=== PATIENT | female | born 1930 | race Caucasian/White ===

== ENCOUNTER → 2017-01-15 | Outpatient (CLI) | payer MEDICARE ==
[~2017-01-15] MED LIST: VENTAER INH; Z.0.NO CURRENT MEDS
[2017-01-15 16:01] LABS: AUTOMATED NEUTROPHIL # 5.4 TH/MM3 (1.8-7.7); BASOPHIL # 0.1 TH/MM3 (0-0.2); BASOPHIL % 0.9 % (0.0-2.0); EOSINOPHIL # 0.1 TH/MM3 (0-0.4); EOSINOPHIL % 1.5 % (0.0-4.0); HEMATOCRIT 38.9 % (35.0-46.0); HEMO FLAGS DIFF FINAL; LYMPH % 23.9 % (9.0-44.0); LYMPHOCYTE # 1.9 TH/MM3 (1.0-4.8); MEAN CELL VOLUME 90.8 FL (80.0-100.0); MEAN CORPUSCULAR HEMOGLOBIN 31.2 PG (27.0-34.0); MEAN CORPUSCULAR HGB CONC 34.3 % (32.0-36.0); MONO % 6.3 % (0.0-8.0); NEUT % 67.4 % (16.0-70.0); PLATELET COUNT 209 TH/MM3 (150-450); RED BLOOD COUNT 4.28 MIL/MM3 (4.00-5.30); RED CELL DISTRIBUTION WIDTH 13.9 % (11.6-17.2); WHITE BLOOD COUNT 7.9 TH/MM3 (4.0-11.0)
[2017-01-15 16:28] LABS: ANION GAP 10 MEQ/L (5-15); AST (GOT) 14 U/L (15-37); BICARBONATE 25.2 MEQ/L (21.0-32.0); BLOOD UREA NITROGEN 14 MG/DL (7-18); CHLORIDE 105 MEQ/L (98-107); GLOMERULAR FILTRATION RATE 76 ML/MIN (>89); GLUCOSE,FASTING 100 MG/DL (74-99); POTASSIUM 3.8 MEQ/L (3.5-5.1); SODIUM (NA) 140 MEQ/L (136-145)
[2017-01-15 16:57] LABS: ALKALINE PHOSPHATASE 80 U/L (45-117); ALT (GPT) 18 U/L (10-53); TOTAL BILIRUBIN ADULT 0.3 MG/DL (0.2-1.0)
== END ==
LOC: CLAB 15:34
PROVIDERS: ATTEND Family Medicine
DX: R53.81 Other malaise (principal)
CPT/HCPCS: 36415; 80053; 82607; 85025

== ENCOUNTER → 2017-10-20 | Outpatient (CLI) | payer MEDICARE ==
[2017-10-20 09:50] LABS: AUTOMATED NEUTROPHIL # 3.4 TH/MM3 (1.8-7.7); BASOPHIL # 0.1 TH/MM3 (0-0.2); BASOPHIL % 0.9 % (0.0-2.0); EOSINOPHIL # 0.2 TH/MM3 (0-0.4); EOSINOPHIL % 2.9 % (0.0-4.0); HEMATOCRIT 39.9 % (35.0-46.0); HEMO FLAGS DIFF FINAL; LYMPH % 27.9 % (9.0-44.0); LYMPHOCYTE # 1.6 TH/MM3 (1.0-4.8); MEAN CELL VOLUME 92.3 FL (80.0-100.0); MEAN CORPUSCULAR HEMOGLOBIN 31.2 PG (27.0-34.0); MEAN CORPUSCULAR HGB CONC 33.8 % (32.0-36.0); MONO % 8.3 % (0.0-8.0); PLATELET COUNT 237 TH/MM3 (150-450); RED BLOOD COUNT 4.32 MIL/MM3 (4.00-5.30); RED CELL DISTRIBUTION WIDTH 14.2 % (11.6-17.2); WHITE BLOOD COUNT 5.7 TH/MM3 (4.0-11.0)
[2017-10-20 09:55] LABS: BLOOD, URINE NEG (NEG); COMMENT (UR) CULT NOT INDICATED; CULTURE IF INDICATED CULT NOT INDICATED; GLUCOSE,URINE NEG (NEG); KETONE, URINE NEG (NEG); MUCUS URINE FEW /lpf (OCC); NITRITE,URINE NEG (NEG); PH, URINE 6.5 (5.0-8.5); SQUAMOUS EPITHELIAL CELL URINE 1 /hpf (0-5); URINE COLOR LIGHT-YELLOW (YELLW/STRAW)
[2017-10-20 10:25] LABS: ANION GAP 7 MEQ/L (5-15); AST (GOT) 18 U/L (15-37); BICARBONATE 28.4 MEQ/L (21.0-32.0); BLOOD UREA NITROGEN 12 MG/DL (7-18); CHLORIDE 102 MEQ/L (98-107); GLOMERULAR FILTRATION RATE 100 ML/MIN (>89); GLUCOSE,FASTING 90 MG/DL (74-99); SODIUM (NA) 137 MEQ/L (136-145)
[2017-10-20 10:26] LABS: ALT (GPT) 18 U/L (10-53)
[2017-10-20 10:52] LABS: ALKALINE PHOSPHATASE 63 U/L (45-117); HDL CHOLESTEROL 108.5 MG/DL (40.0-60.0); LDL CHOLESTEROL 79 MG/DL (0-99); TOTAL BILIRUBIN ADULT 0.5 MG/DL (0.2-1.0)
== END ==
LOC: CLAB 09:16
PROVIDERS: ATTEND Internal Medicine
DX: R35.0 Frequency of micturition (principal); Z13.0 Encounter for screening for diseases of the blood and blood-forming organs and certain disorders involving the immune mechanism; Z13.29 Encounter for screening for other suspected endocrine disorder; Z13.6 Encounter for screening for cardiovascular disorders
CPT/HCPCS: 36415; 80053; 80061; 81001; 82607; 85025

== ENCOUNTER 2018-01-15 13:49 | Observation (INO) | payer MEDICARE ==
[~2018-01-15] VITALS: Ht 152.4 cm; Wt 68.0 kg
[2018-01-15] VITALS (8 sets, daily range): BP systolic 107–145; BP diastolic 57–72; PULSE 60–90; RESP 16–18; TEMP 97.6–98.1; O2SAT 96–99
--- NOTE | 2018-01-15 14:10 | PD ---
HPI Chief Complaint: Field Automobile Adjuster Problem/Complaint Time Seen by Provider: 14:06 Travel History International Travel<30 days: No Contact w/Intl Traveler<30days: No Traveled to known affect area: No History of Present Illness HPI 87-year-old female came to the emergency room with history of rectal bleed that started this morning. Patient says that she felt something gushing out of her bottom and when she looked it was bright red blood. This happened 3 times since then. She came in without her pants with a depends and she dropped around her. Patient says that she feels like she has to go again. Patient recently started taking Aleve about a week ago. The son is here and said that she has had history of GI bleed in the past when she was taking ibuprofen. Patient appears to be anxious but talking. Vital signs are relatively stable. No history of vomiting or abdominal pain. [facility] Past Medical History Narrative Medical List of her past medical, surgical, social and family history is reviewed from the nursing note. Asthma: Yes Anxiety: Yes Heart Rhythm Problems: No Cardiac Catheterization: No High Cholesterol: No Congestive Heart Failure: No Diabetes: No Diminished Hearing: No Respiratory: Yes (FREQ EPISODES OF PNEUMONIA) Immunizations Current: Yes Menopausal: Yes Past Surgical History Appendectomy: Yes Cholecystectomy: Yes Coronary Artery Bypass Graft: No Genitourinary Surgery: Yes ([facility]) Tonsillectomy: Yes Social History Alcohol Use: Yes (1 WINE DAILY) Tobacco Use: No (QUIT 30 YRS AGO ) Substance Use: No Allergies-Medications (Allergen,Severity, Reaction): Coded Allergies: iodine (Unverified Allergy, Severe, 06/29/17) potassium iodide (Unverified Allergy, Severe, 06/29/17) povidone-iodine (Unverified Allergy, Severe, 06/29/17) sodium iodide (Unverified Allergy, Severe, 06/29/17) sodium iodide (Unverified Allergy, Severe, 06/29/17) diatrizoate meglumine (Unverified Allergy, Mild, Swelling, 06/29/17) gadobenic acid (Unverified Allergy, Mild, Swelling, 06/29/17) gadodiamide (Unverified Allergy, Mild, Swelling, 06/29/17) gadoteridol (Unverified Allergy, Mild, Swelling, 06/29/17) iodixanol (Unverified Allergy, Mild, Swelling, 06/29/17) iohexol (Unverified Allergy, Mild, Swelling, 06/29/17) Comments List of her allergies reviewed from the nursing note. Reported Meds & Prescriptions Reported Meds & Active Scripts Active Narrative Medication List of her home medications reviewed from the nursing note. Review of Systems Except as stated in HPI: all other systems reviewed are Neg Gastrointestinal: Positive: Hematochezia Physical Exam Narrative GENERAL: Awake, alert, anxious, elderly SKIN: Focused skin assessment warm/dry. HEAD: Atraumatic. Normocephalic. EYES: Pupils equal and round. No scleral icterus. No injection or drainage. ENT: No nasal bleeding or discharge. Mucous membranes pink and moist. NECK: Trachea midline. No JVD. CARDIOVASCULAR: Regular rate and rhythm. No murmur appreciated. RESPIRATORY: No accessory muscle use. Clear to auscultation. Breath sounds equal bilaterally. GASTROINTESTINAL: Abdomen soft, non-tender, nondistended. Hepatic and splenic margins not palpable. MUSCULOSKELETAL: No obvious deformities. No clubbing. No cyanosis. No edema. NEUROLOGICAL: Awake and alert. No obvious cranial nerve deficits. Motor grossly within normal limits. Normal speech. PSYCHIATRIC: Appropriate mood and affect; insight and judgment normal. Data Data Last Documented VS Vital Signs Date Time Temp Pulse Resp B/P (MAP) Pulse Ox O2 Delivery O2 Flow Rate FiO2 01/15/18 15:30 73 18 145/66 (92) 98 Room Air 01/15/18 14:01 97.6 Orders Orders Basic Metabolic Panel (Bmp) (01/15/18 14:25) Complete Blood Count With Diff (01/15/18 14:25) Prothrombin Time / Inr (Pt) (01/15/18 14:25) Type And Screen (01/15/18 14:25) Ecg Monitoring (01/15/18 14:25) Iv Access Insert/Monitor (01/15/18 14:25) Oximetry (01/15/18 14:25) Sodium Chlor 0.9% 1000 Ml Inj (Ns 1000 M (01/15/18 14:25) Diet Clear Liquid (01/15/18 Dinner) Npo After Midnight W/ Po Meds (01/16/18 Breakfast) Consent (01/15/18 15:47) Magnesium Citrate Liq (Citroma Liq) (01/15/18 16:00) Magnesium Citrate Liq (Citroma Liq) (01/15/18 16:00) Admit Order (Ed Use Only) (01/15/18 16:10) Labs Laboratory Tests Test 01/15/18 14:35 White Blood Count 8.4 TH/MM3 Red Blood Count 4.10 MIL/MM3 Hemoglobin 13.1 GM/DL Hematocrit 37.8 % Mean Corpuscular Volume 92.2 FL Mean Corpuscular Hemoglobin 32.0 PG Mean Corpuscular Hemoglobin Concent 34.8 % Red Cell Distribution Width 13.7 % Platelet Count 234 TH/MM3 Mean Platelet Volume 8.7 FL Neutrophils (%) (Auto) 75.3 % Lymphocytes (%) (Auto) 16.9 % Monocytes (%) (Auto) 6.1 % Eosinophils (%) (Auto) 1.1 % Basophils (%) (Auto) 0.6 % Neutrophils # (Auto) 6.3 TH/MM3 Lymphocytes # (Auto) 1.4 TH/MM3 Monocytes # (Auto) 0.5 TH/MM3 Eosinophils # (Auto) 0.1 TH/MM3 Basophils # (Auto) 0.0 TH/MM3 CBC Comment DIFF FINAL Differential Comment Prothrombin Time 10.7 SEC Prothromb Time International Ratio 1.1 RATIO Blood Urea Nitrogen 16 MG/DL Creatinine 0.55 MG/DL Random Glucose 125 MG/DL Calcium Level 8.9 MG/DL Sodium Level 139 MEQ/L Potassium Level 3.7 MEQ/L Chloride Level 104 MEQ/L Carbon Dioxide Level 29.3 MEQ/L Anion Gap 6 MEQ/L Estimat Glomerular Filtration Rate 105 ML/MIN [facility] Medical Decision Making Medical Screen Exam Complete: Yes Emergency Medical Condition: Yes Medical Record Reviewed: Yes Differential Diagnosis Upper GI bleed, lower GI bleed Narrative Course 2:47 PM awaiting for blood test results. Patient is getting IV fluid bolus. Patient will require admission have explained this to her. 3:27 PM all the blood test results of back and within acceptable limits. Patient continues to be hemodynamically stable. I discussed the case with the GI specialist Dr. Vyas and he would consult on the patient. He wanted the patient to be admitted medically. Awaiting for the hospitalist to call back. Procedures EKG Prior to Arrival: No HemaPrompt Point of Care Internal Pos. & Neg. Controls: Passed Comment Gross blood on the gloved finger Physician Communication Physician Communication Dr. Vyas Diagnosis Primary Impression: Hematochezia Admitting Information Admitting Physician Requests: Admit Scripts Pantoprazole (Pantoprazole) 40 Mg Tab 40 MG PO DAILY for Gastritis, #30 TAB Prov: Mary Frias 01/16/18 Rosa Castrejon MD Jan 15, 2018 14:10
[2018-01-15] MEDS ORDERED: SODIUM CHLOR 0.9% 1000 ML INJ 1,000 ML IV SCH (14:25)
[2018-01-15] MEDS ORDERED: SODIUM CHLORIDE 0.9% FLUSH 10 ML FLUSH IVF PRN (14:30)
[2018-01-15] MEDS ORDERED: ALEV220T14 PO (14:34)
[2018-01-15 15:02] LABS: AUTOMATED NEUTROPHIL # 6.3 TH/MM3 (1.8-7.7); BASOPHIL % 0.6 % (0.0-2.0); EOSINOPHIL # 0.1 TH/MM3 (0-0.4); EOSINOPHIL % 1.1 % (0.0-4.0); HEMATOCRIT 37.8 % (35.0-46.0); HEMOGLOBIN 13.1 GM/DL (11.6-15.3); LYMPH % 16.9 % (9.0-44.0); LYMPHOCYTE # 1.4 TH/MM3 (1.0-4.8); MEAN CELL VOLUME 92.2 FL (80.0-100.0); MEAN CORPUSCULAR HGB CONC 34.8 % (32.0-36.0); MEAN PLATELET VOLUME 8.7 FL (7.0-11.0); MONO % 6.1 % (0.0-8.0); MONOCYTE # 0.5 TH/MM3 (0-0.9); NEUT % 75.3 % (16.0-70.0); PLATELET COUNT 234 TH/MM3 (150-450); RED CELL DISTRIBUTION WIDTH 13.7 % (11.6-17.2); WHITE BLOOD COUNT 8.4 TH/MM3 (4.0-11.0)
[2018-01-15 15:16] LABS: INTERNATIONAL NORMALIZED RATIO 1.1 RATIO; PROTHROMBIN TIME - PATIENT 10.7 SEC (9.8-11.6)
[2018-01-15 15:26] LABS: BICARBONATE 29.3 MEQ/L (21.0-32.0); CALCIUM 8.9 MG/DL (8.5-10.1); CREATININE 0.55 MG/DL (0.50-1.00)
--- NOTE | 2018-01-15 15:47 | PD.CONS ---
HPI History of Present Illness This is a 87 year old female with prior hx GIB who presented to ER with rectal bleeding, onset 2 hours ago. She had sensation to have a BM and passed copious blood,and what sounds like a clot, no stool. Just had 2nd episode of copious bleeding. She admits chornic constipation. Of late she has had decreased appetite. Denies black tarry stool, abd pain, nausea, vomiting. 6-8 y ago she had rectal bleeding after taking prescription "like ibuprofen" and aleve on top of that. +recent frequent use NSAIDs. She takes aleve for clicking in her ear which she attributes to OA and pain in mastoid area. Not on blood thinners. Last colonoscopy 6 y ago and normal per pt. She does not know who did it. Never had EGD. (Kourtney Zuniga) PFSH Past Medical History denies Past Surgical History appy cholecystectomy T&A (Kourtney Zuniga) Coded Allergies: iodine (Unverified Allergy, Severe, 06/29/17) potassium iodide (Unverified Allergy, Severe, 06/29/17) povidone-iodine (Unverified Allergy, Severe, 06/29/17) sodium iodide (Unverified Allergy, Severe, 06/29/17) sodium iodide (Unverified Allergy, Severe, 06/29/17) diatrizoate meglumine (Unverified Allergy, Mild, Swelling, 06/29/17) gadobenic acid (Unverified Allergy, Mild, Swelling, 06/29/17) gadodiamide (Unverified Allergy, Mild, Swelling, 06/29/17) gadoteridol (Unverified Allergy, Mild, Swelling, 06/29/17) iodixanol (Unverified Allergy, Mild, Swelling, 06/29/17) iohexol (Unverified Allergy, Mild, Swelling, 06/29/17) Family History denies Social History 1/2 glass wine daily no tobacco no illicit drug use (Kourtney Zuniga) Review of Systems Constitutional: COMPLAINS OF: Dizziness Endocrine: DENIES: Polydipsia Eyes: DENIES: Blurred vision Ears, nose, mouth, throat: COMPLAINS OF: Hearing loss Respiratory: DENIES: Cough Cardiovascular: DENIES: Chest pain Gastrointestinal: COMPLAINS OF: Bloody stools, DENIES: Abdominal pain, Black stools, Nausea, Vomiting, Hematemesis Genitourinary: DENIES: Hematuria Musculoskeletal: DENIES: Muscle aches Integumentary: DENIES: Abnormal pigmentation Hematologic/lymphatic: DENIES: Bruising Immunologic/allergic: DENIES: Eczema Neurologic: DENIES: Abnormal gait Psychiatric: DENIES: Confusion (Kourtney Zuniga) GI Exam Vitals I&O Vital Signs Date Time Temp Pulse Resp B/P (MAP) Pulse Ox O2 Delivery O2 Flow Rate FiO2 01/15/18 14:31 97 Room Air 01/15/18 14:21 77 18 122/72 (89) 99 Room Air 01/15/18 14:21 18 01/15/18 14:01 97.6 82 16 121/64 (83) 99 Laboratory Test 01/15/18 14:35 White Blood Count 8.4 TH/MM3 Red Blood Count 4.10 MIL/MM3 Hemoglobin 13.1 GM/DL Hematocrit 37.8 % Mean Corpuscular Volume 92.2 FL Mean Corpuscular Hemoglobin 32.0 PG Mean Corpuscular Hemoglobin Concent 34.8 % Red Cell Distribution Width 13.7 % Platelet Count 234 TH/MM3 Mean Platelet Volume 8.7 FL Neutrophils (%) (Auto) 75.3 % Lymphocytes (%) (Auto) 16.9 % Monocytes (%) (Auto) 6.1 % Eosinophils (%) (Auto) 1.1 % Basophils (%) (Auto) 0.6 % Neutrophils # (Auto) 6.3 TH/MM3 Lymphocytes # (Auto) 1.4 TH/MM3 Monocytes # (Auto) 0.5 TH/MM3 Eosinophils # (Auto) 0.1 TH/MM3 Basophils # (Auto) 0.0 TH/MM3 CBC Comment DIFF FINAL Differential Comment Prothrombin Time 10.7 SEC Prothromb Time International Ratio 1.1 RATIO Blood Urea Nitrogen 16 MG/DL Creatinine 0.55 MG/DL Random Glucose 125 MG/DL Calcium Level 8.9 MG/DL Sodium Level 139 MEQ/L Potassium Level 3.7 MEQ/L Chloride Level 104 MEQ/L Carbon Dioxide Level 29.3 MEQ/L Anion Gap 6 MEQ/L Estimat Glomerular Filtration Rate 105 ML/MIN Physical Examination HEENT: PERRL; normocephalic; atraumatic; no jaundice. CHEST: CTA CARDIAC: RRR ABDOMEN: Soft, nondistended, nontender; no hepatosplenomegaly; bowel sounds are present in all four quadrants. EXTREMITIES: No clubbing, cyanosis, or edema. SKIN: Normal; no rash; no jaundice. AVIATION CONSULTANT: No focal deficits; alert and oriented times three. (Kourtney Zuniga) Assessment and Plan Plan ASSESSMENT - BRBPR - copious rectal bleeding started today. prior hx similar episode 6-8 y ago. Had colonoscopy 6 y ago and normal per pt recent frequent NSAID use. HH WNL currently. - decreased appetite - unclear etiology. PLAN - EGD and colonoscopy - obtain consent - clear liquids - NPO after MN - Mg Citrate prep - monitor HH - further recs to follow pt seen by myself and Dr Vyas and this note is on his behalf (Kourtney Zuniga) Physician Comments Seen and examined with ALLISON, egd/colonoscopy planned for tomorrow. Golytle prep today. Monitor labs. Will follow, thank you. (Rosangela Vyas MD) Kourtney Zuniga Jan 15, 2018 15:47 Rosangela Vyas MD Jan 15, 2018 16:18
[2018-01-15] MEDS ORDERED: MAGNESIUM CITRATE SOLN 300 ML BTL PO ONE ×2 (16:00)
[2018-01-15] MEDS: SODIUM CHLOR 0.45% 1000 ML INJ 1,000 ML IV SCH (16:11)
[2018-01-15] MEDS ORDERED: SODIUM CHLORIDE 0.9% FLUSH 10 ML FLUSH IV FLUSH PRN (16:15)
[2018-01-15] MEDS ORDERED: NALOXONE HCL 0.4 MG/ML AMP IV PUSH PRN (16:15)
[2018-01-15] MEDS ORDERED: SENNOSIDES 8.6 MG TAB PO PRN (16:15)
[2018-01-15] MEDS ORDERED: ACETAMINOPHEN 325 MG TAB PO PRN (16:15)
[2018-01-15] MEDS ORDERED: ONDANSETRON HCL 4 MG/2 ML VIAL IVP PRN (16:15)
[2018-01-15] MEDS ORDERED: MAGNESIUM HYDROXIDE SUSP 30 ML CUP PO PRN (16:15)
[2018-01-15] MEDS ORDERED: BISACODYL 10 MG SUPP RECTAL PRN (16:15)
--- NOTE | 2018-01-15 17:15 | HHI.HP ---
[facility] Service [facility] Primary Care Physician Fouzia Alvarez M.D. Admission Diagnosis hematochezia Diagnoses: Chief Complaint: Rectal bleeding Travel History International Travel<30 Days: No Contact w/Intl Traveler <30 Da: No Traveled to Known Affected Are: No History of Present Illness This is a 67 y/o F with no PMhx c/o rectal bleeding. Patient stated that she was visiting a friend on the fifth floor and she had multiple episodes of rectal bleeding. Bleeding started at 1:00 PM. She had 4 episodes so far. Described as bright red blood. Denies abdominal pain. Patient stated that she had this happened 6 years ago and she had a colonoscopy and was told that it was negative. Patient was due for colonoscopy yesterday. Denies any nausea or vomiting. Patient stated that she only took about 2 tablets of Aleve secondary to ear pain. All other review of system reviewed and negative. Past Family Social History Past Medical History denies Past Surgical History Appendectomy cholecystectomy Tonsillectomy Reported Medications Aleve Arthritis (Naproxen Sodium) 220 Mg Tab 220 Mg PO BID Allergies: Coded Allergies: iodine (Unverified Allergy, Severe, 06/29/17) potassium iodide (Unverified Allergy, Severe, 06/29/17) povidone-iodine (Unverified Allergy, Severe, 06/29/17) sodium iodide (Unverified Allergy, Severe, 06/29/17) sodium iodide (Unverified Allergy, Severe, 06/29/17) diatrizoate meglumine (Unverified Allergy, Mild, Swelling, 06/29/17) gadobenic acid (Unverified Allergy, Mild, Swelling, 06/29/17) gadodiamide (Unverified Allergy, Mild, Swelling, 06/29/17) gadoteridol (Unverified Allergy, Mild, Swelling, 06/29/17) iodixanol (Unverified Allergy, Mild, Swelling, 06/29/17) iohexol (Unverified Allergy, Mild, Swelling, 06/29/17) Active Ordered Medications Current Medications Sodium Chloride 1,000 ml @ 1,000 mls/hr Q1H IV Last administered on 01/15/18at 14:37; Start 01/15/18 at 14:25; Stop 01/15/18 at 15:24; Status DC Sodium Chloride (NS Flush) 2 ml UNSCH PRN IVF FLUSH AFTER USING IV ACCESS; Start 01/15/18 at 14:30 Magnesium Citrate (Citroma Liq) 300 ml ONCE ONCE PO ; Start 01/15/18 at 16:00; Stop 01/15/18 at 16:01; Status DC Magnesium Citrate (Citroma Liq) 300 ml ONCE ONCE PO ; Start 01/15/18 at 16:00; Stop 01/15/18 at 16:01; Status DC Sodium Chloride 1,000 ml @ 75 mls/hr [id number] IV ; Start 01/15/18 at 16:11 Sodium Chloride (NS Flush) 2 ml UNSCH PRN IV FLUSH FLUSH AFTER USING IV ACCESS ; Start 01/15/18 at 16:15 Sodium Chloride (NS Flush) 2 ml BID IV FLUSH ; Start 01/15/18 at 21:00 Acetaminophen (Tylenol) 650 mg Q4H PRN PO TEMP > 100.4; Start 01/15/18 at 16:15 Ondansetron HCl (Zofran Inj) 4 mg Q6H PRN IVP NAUSEA OR VOMITING; Start at 16:15 Naloxone HCl (Narcan Inj) 0.4 mg UNSCH PRN IV PUSH SEE LABEL COMMENTS; Start at 16:15 Magnesium Hydroxide (Milk Of Magnesia Liq) 30 ml Q12H PRN PO Mild constipation ; Start 01/15/18 at 16:15 Sennosides (Senokot) 17.2 mg Q12H PRN PO Moderate constipation; Start 01/15/18 at 16:15 Bisacodyl (Dulcolax Supp) 10 mg DAILY PRN RECTAL SEVERE CONSITIPATION; Start at 16:15 Family History denies Social History 1/2 glass wine daily no tobacco no illicit drug use Physical Exam Vital Signs Vital Signs Date Time Temp Pulse Resp B/P (MAP) Pulse Ox O2 Delivery O2 Flow Rate FiO2 01/15/18 16:58 01/15/18 15:30 73 18 145/66 (92) 98 Room Air 01/15/18 14:31 97 Room Air 01/15/18 14:21 77 18 122/72 (89) 99 Room Air 01/15/18 14:21 18 01/15/18 14:01 97.6 82 16 121/64 (83) 99 Physical Exam GENERAL: This is a well-nourished, well-developed patient, in no apparent distress. SKIN: No rashes, ecchymoses or lesions. Cool and dry. HEAD: Atraumatic. Normocephalic. No temporal or scalp tenderness. EYES: Pupils equal round and reactive. Extraocular motions intact. No scleral icterus. No injection or drainage. ENT: Nose without bleeding, purulent drainage or septal hematoma. Throat without erythema, tonsillar hypertrophy or exudate. Uvula midline. Airway patent. NECK: Trachea midline. No JVD or lymphadenopathy. Supple, nontender, no meningeal signs. CARDIOVASCULAR: Regular rate and rhythm without murmurs, gallops, or rubs. RESPIRATORY: Clear to auscultation. Breath sounds equal bilaterally. No wheezes , rales, or rhonchi. GASTROINTESTINAL: Abdomen soft and nondistended. mild +TTP in epigastric area. No hepato-splenomegaly, or palpable masses. No guarding. MUSCULOSKELETAL: Extremities without clubbing, cyanosis, or edema. No joint tenderness, effusion, or edema noted. No calf tenderness. Negative Homans sign bilaterally. NEUROLOGICAL: Awake and alert. Cranial nerves II through XII intact. Motor and sensory grossly within normal limits. Five out of 5 muscle strength in all muscle groups. Normal speech. Laboratory Laboratory Tests Test 01/15/18 14:35 White Blood Count 8.4 Red Blood Count 4.10 Hemoglobin 13.1 Hematocrit 37.8 Mean Corpuscular Volume 92.2 Mean Corpuscular Hemoglobin 32.0 Mean Corpuscular Hemoglobin Concent 34.8 Red Cell Distribution Width 13.7 Platelet Count 234 Mean Platelet Volume 8.7 Neutrophils (%) (Auto) 75.3 Lymphocytes (%) (Auto) 16.9 Monocytes (%) (Auto) 6.1 Eosinophils (%) (Auto) 1.1 Basophils (%) (Auto) 0.6 Neutrophils # (Auto) 6.3 Lymphocytes # (Auto) 1.4 Monocytes # (Auto) 0.5 Eosinophils # (Auto) 0.1 Basophils # (Auto) 0.0 CBC Comment DIFF FINAL Differential Comment Prothrombin Time 10.7 Prothromb Time International Ratio 1.1 Blood Urea Nitrogen 16 Creatinine 0.55 Random Glucose 125 Calcium Level 8.9 Sodium Level 139 Potassium Level 3.7 Chloride Level 104 Carbon Dioxide Level 29.3 Anion Gap 6 Estimat Glomerular Filtration Rate 105 Result Diagram: 01/15/18 1435 01/15/18 1435 Caprini VTE Risk Assessment Caprini VTE Risk Assessment: No/Low Risk (score <= 1) Caprini Risk Assessment Model Point Value = 1 Point Value = 2 Point Value = 3 Point Value = 5 Age 41-60 Minor surgery BMI > 25 kg/m2 Swollen legs Varicose veins or History of unexplained or recurrent spontaneous Oral contraceptives or hormone replacement Sepsis (< 1 month) Serious lung disease, including pneumonia (< 1 month) Abnormal pulmonary function Acute myocardial infarction Congestive heart failure (< 1 month) History of inflammatory bowel disease Medical patient at bed rest Age 61-74 Arthroscopic surgery Major open surgery (> 45 min) Laparoscopic surgery (> 45 min) Malignancy Confined to bed (> 72 hours) Immobilizing plaster cast Central venous access Age >= 75 History of VTE Family history of VTE Factor V Leiden Prothrombin [id number] Lupus anticoagulant Anticardiolipin antibodies Elevated serum homocysteine Heparin-induced thrombocytopenia Other congenital or acquired thrombophilia Stroke (< 1 month) Elective arthroplasty Hip, pelvis, or leg fracture Acute spinal cord injury (< 1 month) Prophylaxis Regimen Total Risk Factor Score Risk Level Prophylaxis Regimen 0-1 Low Early ambulation 2 Moderate Order ONE of the following: *Sequential Compression Device (SCD) *Heparin 5000 units SQ BID 3-4 Higher Order ONE of the following medications: *Heparin 5000 units SQ TID *Enoxaparin/Lovenox 40 mg SQ daily (WT < 150 kg, CrCl > 30 mL/min) *Enoxaparin/Lovenox 30 mg SQ daily (WT < 150 kg, CrCl > 10-29 mL/min) *Enoxaparin/Lovenox 30 mg SQ BID (WT < 150 kg, CrCl > 30 mL/min) AND/OR *Sequential Compression Device (SCD) 5 or more Highest Order ONE of the following medications: *Heparin 5000 units SQ TID (Preferred with Epidurals) *Enoxaparin/Lovenox 40 mg SQ daily (WT < 150 kg, CrCl > 30 mL/min) *Enoxaparin/Lovenox 30 mg SQ daily (WT < 150 kg, CrCl > 10-29 mL/min) *Enoxaparin/Lovenox 30 mg SQ BID (WT < 150 kg, CrCl > 30 mL/min) AND *Sequential Compression Device (SCD) Assessment and Plan Assessment and Plan 87-year-old female with no past medical history presented with rectal bleeding Rectal bleeding -Patient did have a episode 6 years ago in the past but she said she had no diagnosis. Last colonoscopy 6 years ago per patient negative. -Patient hemodynamically stable. Hemoglobin is 13.1. -We will trend hemoglobin every 6 hours. Monitor clinically. -GI saw patient patient scheduled for colonoscopy tomorrow. Support with IV fluids and Protonix since patient does have mild epigastric pain with palpation. DVT prophylaxis -SCDs. Encourage ambulation. Chemoprophylaxis contraindicated secondary to rectal bleeding. Code Status DNR Discussed Condition With Patient, her sister and son. Radha Tucker MD Jan 15, 2018 17:14
[2018-01-15 19:26] LABS: HEMATOCRIT 27.4 % (35.0-46.0); HEMOGLOBIN 9.6 GM/DL (11.6-15.3)
[2018-01-15] MEDS: SODIUM CHLORIDE 0.9% FLUSH 10 ML FLUSH IV FLUSH SCH (21:00)
[2018-01-16] VITALS (7 sets, daily range): BP systolic 112–136; BP diastolic 59–79; PULSE 60–98; RESP 16–18; TEMP 97.6–98.6; O2SAT 96–100
[2018-01-16 03:53] LABS: HEMATOCRIT 26.6 % (35.0-46.0); HEMOGLOBIN 9.3 GM/DL (11.6-15.3); MEAN CELL VOLUME 91.8 FL (80.0-100.0); MEAN CORPUSCULAR HEMOGLOBIN 32.1 PG (27.0-34.0); MEAN PLATELET VOLUME 8.5 FL (7.0-11.0); PLATELET COUNT 185 TH/MM3 (150-450); RED CELL DISTRIBUTION WIDTH 13.6 % (11.6-17.2); WHITE BLOOD COUNT 7.6 TH/MM3 (4.0-11.0)
[2018-01-16 04:09] LABS: BICARBONATE 30.5 MEQ/L (21.0-32.0); CALCIUM 8.2 MG/DL (8.5-10.1); CREATININE 0.44 MG/DL (0.50-1.00)
--- NOTE | 2018-01-16 08:27 | HHI.PR ---
Subjective Remarks Follow-up rectal bleeding. Patient seen and examined today. Patient states that she had about 10 more bloody bowel movement overnight. States that she has been leaking all the night. Otherwise she denies abdominal pain, cramping. Denies chest pain, palpitations, fevers, chills, nausea, vomiting. Objective Vitals Vital Signs Date Time Temp Pulse Resp B/P (MAP) Pulse Ox O2 Delivery O2 Flow Rate FiO2 01/16/18 07:57 97.6 62 18 132/63 (86) 100 01/16/18 04:29 98.4 86 16 112/65 (81) 96 01/16/18 03:51 60 01/16/18 01:32 98.4 88 18 115/65 (82) 96 01/16/18 00:00 66 01/15/18 20:38 98.1 90 17 117/64 (81) 96 01/15/18 20:00 60 01/15/18 17:29 73 114/57 (76) 01/15/18 17:19 74 16 107/59 (75) 99 01/15/18 16:58 01/15/18 15:30 73 18 145/66 (92) 98 Room Air 01/15/18 14:31 97 Room Air 01/15/18 14:21 77 18 122/72 (89) 99 Room Air 01/15/18 14:21 18 01/15/18 14:01 97.6 82 16 121/64 (83) 99 I/O 01/15/18 01/15/18 01/15/18 01/16/18 01/16/18 01/16/18 07:00 15:00 23:00 07:00 15:00 23:00 # Voids 4 # Bowel Movements 4 Result Diagram: 01/16/18 0320 01/16/18 0320 Objective Remarks GENERAL: This is a well-nourished, well-developed patient, in no apparent distress. SKIN: Warm and dry. HEENT: Normocephalic. Pupils equal round and reactive. Nose without bleeding. Airway patent. NECK: Trachea midline. CARDIOVASCULAR: Regular rate and rhythm without murmurs, gallops, or rubs. RESPIRATORY: Clear to auscultation. Breath sounds equal bilaterally. No wheezes , rales, or rhonchi. GASTROINTESTINAL: Abdomen soft, non-tender, nondistended. Bowel Sounds normoactive x4. MUSCULOSKELETAL: Extremities without clubbing, cyanosis, or edema. NEUROLOGICAL: Awake and alert. Very hard of hearing. Moves all extremities. Normal speech. A/P Problem List: (1) Hematochezia ICD Code: K92.1 - Melena Status: Acute Assessment and Plan 87-year-old female with no past medical history presented with rectal bleeding. Rectal bleeding, acute GIB -Patient did have a episode 6 years ago in the past but she said she had no diagnosis. Last colonoscopy 6 years ago per patient negative. -Initial hemoglobin 13.1 --> 9.6 -->9.3. trend h/h -She continues to have rectal bleeding reported to be approximately 10 more overnight -Protonix IV, IV fluid -GI consult for further evaluation recommendations -Plan for colonoscopy/egd today DVT prophylaxis SCDs. Encourage ambulation. Chemoprophylaxis contraindicated secondary to rectal bleeding. Discharge Planning Colonoscopy/EGD today. Will DC if cleared by Mary Marcos Jan 16, 2018 08:27
--- NOTE | 2018-01-16 09:03 | EKG ---
Date Performed: 01/16/2018 Time Performed: 06:23:43 PTAGE: 87 years EKG: Sinus rhythm WITH SINUS ARRHYTHMIA NONSPECIFIC ST & T-WAVE ABNORMALITY BORDERLINE ECG PREVIOUS TRACING : 11/28/2012 06.35 DOCTOR: Eder Mosqueda Interpretating Date/Time 01/16/2018 09:02:17
[2018-01-16] MEDS: SODIUM CHLOR 0.45% 1000 ML INJ 1,000 ML IV SCH (09:24)
[2018-01-16] MEDS: SODIUM CHLORIDE 0.9% FLUSH 10 ML FLUSH IV FLUSH SCH (09:24)
--- NOTE | 2018-01-16 11:24 | GIPROC ---
[facility] [address] [facility]. [facility], [id number] EGD PROCEDURE REPORT EXAM DATE: 01/16/2018 PATIENT NAME: Leah Perdomo MR #: [id number] BIRTHDATE: 1930 ATTENDING: Rosangela Vyas MD ORDER #: [id number] PEDIATRIC REGISTERED NURSE: Steph Kelsey and Villa Kaur STATUS: inpatient INDICATIONS: The patient is a 87 yr old female here for an EGD due to acute post hemorrhagic anemia PROCEDURE PERFORMED: EGD w/ biopsy MEDICATIONS: None and Per Anesthesia. TOPICAL ANESTHETIC: CONSENT: The patient understands the risks and benefits of the procedure and understands that these risks include, but are not limited to: sedation, allergic reaction, infection, perforation and/or bleeding. Alternative means of evaluation and treatment include, among others: physical exam, x-rays, and/or surgical intervention. The patient elects to proceed with this endoscopic procedure. medical equipment was checked for proper function. Hand hygiene and appropriate measures for infection prevention was taken. After the risks, benefits and alternatives of the procedure were thoroughly explained, Informed consent was verified, confirmed and timeout was successfully executed by the treatment team. The patient was anesthetized with topical anesthesia and the EC-3490Li (Pedi C) endoscope was introduced through the mouth and advanced to the second portion of the duodenum. Retroflexed views revealed no abnormalities The gastroscope was then slowly withdrawn and removed. ESOPHAGUS: There was LA Class B esophagitis noted. A biopsy was performed using cold forceps. Sample sent for histology. STOMACH: There was erythematous moderate gastritis in the gastric antrum. A biopsy was performed using cold forceps. Sample sent for histology. DUODENUM: The duodenal mucosa appeared normal in the bulb and second portion of the duodenum. ADVERSE EVENTS: There were no complications. IMPRESSIONS: 1. There was LA Class B esophagitis noted; biopsy was performed 2. There was erythematous gastritis in the gastric antrum; biopsy was performed 3. Normal duodenal mucosa in the bulb and second portion of the duodenum 4. Retroflexed views revealed no abnormalities RECOMMENDATIONS: 1. Await biopsy results. Biopsy results will not be ready for 7-10 days. If you don't hear from us in two weeks, call our office for biopsy results. 2. Anti-reflux regimen 3. Continue PPI PATIENT CONDITION: stable DISPOSITION: Inpatient REPEAT EXAM: Return 1 year EGD pending biopsy results Rosangela Vyas MD eSigned: Rosangela Vyas MD 01/16/2018 11:23 AM cc: PATIENT NAME: ConorLeah MR#: [id number]
--- NOTE | 2018-01-16 11:28 | GIPROC ---
[facility] [address] [facility]. [facility], [address] COLONOSCOPY PROCEDURE REPORT EXAM DATE: 01/16/2018 PATIENT NAME: Leah Perdomo MR #: [id number] BIRTHDATE: 1930 ENDOSCOPIST: Rosangela Vyas MD ORDER #: [id number] CAMP ADVISOR: Steph Kelsey and Villa Kaur STATUS: inpatient INDICATIONS: The patient is a 87 yr old female here for a colonoscopy due to hematochezia PROCEDURE PERFORMED: Colonoscopy, diagnostic MEDICATIONS: None and Per Anesthesia. PREP QUALITY: The Golf Bowel Prep Score was Right colon 2, Mid colon 3, and Left colon 3. Total = 8. PREP TYPE:Magnesium Citrate PREP TYPE:Type: ESTIMATED BLOOD LOSS: None CONSENT: The patient understands the risks and benefits of the procedure and understands that these risks include, but are not limited to: sedation, allergic reaction, infection, perforation and/or bleeding. Alternative means of evaluation and treatment include, among others: physical exam, x-rays, and/or surgical intervention. The patient elects to proceed with this endoscopic procedure. medical equipment was checked for proper function. Hand hygiene and appropriate measures for infection prevention was taken. After the risks, benefits and alternatives of the procedure were thoroughly explained, Informed consent was verified, confirmed and timeout was successfully executed by the treatment team. A digital exam revealed external hemorrhoids The Pentax EC-3490Li endoscope was introduced through the anus and advanced to the cecum, which was identified by both the appendix and ileocecal valve. The instrument was then slowly withdrawn as the colon was fully examined. COLON FINDINGS: Severe diverticulosis was noted in the sigmoid colon. No bleeding was noted from the diverticulosis. A polypoid shaped sessile polyp ranging between 3-5mm in size was found in the rectum. A polypectomy was performed with cold forceps. The resection was complete and the polyp tissue was completely retrieved. Retroflexed views revealed internal hemorrhoids and Retroflexed views revealed small internal hemorrhoids The scope was then completely withdrawn from the patient and the procedure terminated. PROCEDURE WITHDRAWAL TIME:7minutes ADVERSE EVENTS: There were no complications. IMPRESSIONS: 1. Severe diverticulosis was noted in the sigmoid colon 2. A sessile polyp ranging between 3-5mm in size was found in the rectum; polypectomy was performed with cold forceps 3. Retroflexed views revealed internal hemorrhoids 4. Retroflexed views revealed small internal hemorrhoids 5. Revealed external hemorrhoids RECOMMENDATIONS: 1. Await biopsy results. Biopsy results will not be ready for 7-10 days. If you don't hear from us in two weeks, call our office for results. 2. Continue surveillance 3. Yearly hemoccult 4. No seeds, nuts and popcorn in diet 5. Xray for CT of abdomen with contrast 6. Xray for CT of pelvis with contrast RECALL: Return 5 years Colonoscopy Rosangela Vyas MD eSigned: Rosangela Vyas MD 01/16/2018 11:27 AM cc: PATIENT NAME: Leah Perdomo MR#: [id number]
[2018-01-16] MEDS ORDERED: DO NOT ADM ANY ANTICOAGULANT DRUGS PRN (11:35)
[2018-01-16] MEDS ORDERED: PROPOFOL 200 MG/20 ML AMP IV ONE (12:00)
[2018-01-16] MEDS ORDERED: LIDOCAINE HCL 1% PF 5 ML SYRINGE OTHER ONE (12:00)
[2018-01-16] MEDS ORDERED: PANTOPRAZOLE SOD 40 MG DELAYED RELEASE TAB PO SCH (16:30)
[2018-01-16] MEDS ORDERED: PANT40TA3 PO (16:55)
--- NOTE | 2018-01-16 17:41 | HHI.DS ---
Discharge Summary Admission Date Jan 15, 2018 at 16:12 Discharge Date: Jan 16, 2018 Admitting Diagnosis hematochezia (1) Hematochezia ICD Code: K92.1 - Melena Status: Acute Procedures S/P EGD Colonoscopy Brief History - From Admission This is a 67 y/o F with no PMhx c/o rectal bleeding. Patient stated that she was visiting a friend on the fifth floor and she had multiple episodes of rectal bleeding. Bleeding started at 1:00 PM. She had 4 episodes so far. Described as bright red blood. Denies abdominal pain. Patient stated that she had this happened 6 years ago and she had a colonoscopy and was told that it was negative. Patient was due for colonoscopy yesterday. Denies any nausea or vomiting. Patient stated that she only took about 2 tablets of Aleve secondary to ear pain. All other review of system reviewed and negative. CBC/BMP: 01/16/18 1645 01/16/18 0320 Significant Findings Laboratory Tests Test 01/15/18 14:35 01/15/18 19:03 01/15/18 22:38 01/16/18 03:20 Neutrophils (%) (Auto) 75.3 % (16.0-70.0) Random Glucose 125 MG/DL (74-106) 120 MG/DL (74-106) Hemoglobin 9.6 GM/DL (11.6-15.3) 9.5 GM/DL (11.6-15.3) 9.3 GM/DL (11.6-15.3) Hematocrit 27.4 % (35.0-46.0) 26.6 % (35.0-46.0) Red Blood Count 2.90 MIL/MM3 (4.00-5.30) Creatinine 0.44 MG/DL (0.50-1.00) Calcium Level 8.2 MG/DL (8.5-10.1) Chloride Level 109 MEQ/L (98-107) Anion Gap 4 MEQ/L (5-15) Test 01/16/18 16:45 Hemoglobin 10.3 GM/DL (11.6-15.3) PE at Discharge GENERAL: This is a well-nourished, well-developed patient, in no apparent distress. SKIN: Warm and dry. HEENT: Normocephalic. Pupils equal round and reactive. Nose without bleeding. Airway patent. NECK: Trachea midline. CARDIOVASCULAR: Regular rate and rhythm without murmurs, gallops, or rubs. RESPIRATORY: Clear to auscultation. Breath sounds equal bilaterally. No wheezes , rales, or rhonchi. GASTROINTESTINAL: Abdomen soft, non-tender, nondistended. Bowel Sounds normoactive x4. MUSCULOSKELETAL: Extremities without clubbing, cyanosis, or edema. NEUROLOGICAL: Awake and alert. Very hard of hearing. Moves all extremities. Normal speech. Pt update on day of discharge Patient is status post EGD colonoscopy. Reports she is doing well. No evidence of bleeding noted. Patient is visiting her son when she had a rectal bleeding and wanted to go back and visit him again. Denies pain and discomfort. Denies SOB/ dyspnea. Denies chest pain, palpitations, headaches, dizziness. Denies fevers, chills, n/v/d. Denies hematuria, dysuria. Hospital Course Patient is an 87-year-old female with no past medical history who came into the ED with rectal bleeding. No acute GI bleed with initial hemoglobin 13.1 and dropped down to 9.3. She was given IV Protonix. GI consulted. She is status post EGD and colonoscopy. They have found class B esophagitis biopsy was performed, erythematous gastritis in the gastric antrum and biopsy was also performed. She is to await for the biopsy results she will continue with PPI. Colonoscopy showed 1. Severe diverticulosis was noted in the sigmoid colon2. A sessile polyp ranging between 3-5mm in size was found in the rectum; polypectomy was performed with cold forceps3. Retroflexed views revealed internal hemorrhoids4. Retroflexed views revealed small internal hemorrhoids5. Revealed external hemorrhoids. She is to continue to await biopsy. Yearly Hemoccult. No seeds, nuts and popcorn in the diet as recommended by GI. Colonoscopy in 5 years. she will follow-up with GI doctors in [address] Magaña states okay for patient to go home and follow-up in their office. Patient has met maximal benefits of hospitalization. Clinically stable for discharge. Pt Condition on Discharge: Stable Discharge Disposition: Discharge Home Discharge Time: <= 30 minutes Discharge Instructions DIET: Follow Instructions for: Heart Healthy Diet Additional Diet Instructions: avoid NSAIDs, alcohol use, No seeds, nuts and popcorn in diet Activities you can perform: Regular-No Restrictions Activities to Avoid: Driving for 24 hrs Follow up Referrals: Gastroenterology - 2 Weeks @ [facility] with Rosangela Vyas MD PCP Follow-up - 1 Week New Medications: Pantoprazole (Pantoprazole) 40 Mg Tab 40 MG PO DAILY for Gastritis, #30 TAB Discontinued Medications: Naproxen Sodium (Aleve Arthritis) 220 Mg Tab 220 MG PO BID, TAB Mary Frias Jan 16, 2018 17:41
--- NOTE | 2018-01-16 17:42 | HHI.DCPOC ---
Discharge Care Plan Diagnosis: (1) Hematochezia Your Health Problems Are: Inflammation Bleeding Tendency Goals to Promote Your Health * To prevent worsening of your condition and complications * To maintain your health at the optimal level Directions to Meet Your Goals Take your medications as prescribed Follow your dietary instruction Follow activity as directed Keep your appointments as scheduled Take your immunizations and boosters as scheduled If your symptoms worsen call your PCP, if no PCP go to Urgent Care Center or Emergency Room Smoking is Dangerous to Your Health. Avoid second hand smoke Call the 24-hour hour crisis hotline for domestic abuse at Mary Frias Jan 16, 2018 17:41
== END 2018-01-16 18:00 | disposition home or self-care (01) ==
LOC: NEPE 13:49 → NEDA 16:12 → NEPFCDU 17:04
PROVIDERS: ADMIT Internal Medicine; ATTEND Internal Medicine
DX: K92.1 Melena (principal); K64.4 Residual hemorrhoidal skin tags; K29.70 Gastritis, unspecified, without bleeding; K64.8 Other hemorrhoids; K57.30 Diverticulosis of large intestine without perforation or abscess without bleeding; K31.9 Disease of stomach and duodenum, unspecified; K20.9 Esophagitis, unspecified; K62.1 Rectal polyp; K59.00 Constipation, unspecified; R63.0 Anorexia; J45.909 Unspecified asthma, uncomplicated; F41.9 Anxiety disorder, unspecified
CPT/HCPCS: 00813; 43239; 45378; 80048; 85014; 85018; 85025; 85027; 85610; 86850; 86900; 86901; 88305; 88312; 93005; 96360; 96361; 97162; 99285; G0378; G8987; G8988; J7030

== ENCOUNTER → 2018-01-24 | Outpatient (CLI) | payer MEDICARE ==
[~2018-01-24] MED LIST changes: +PANT40TA3 PO; -VENTAER INH; -Z.0.NO CURRENT MEDS
[2018-01-24 14:52] LABS: AUTOMATED NEUTROPHIL # 4.4 TH/MM3 (1.8-7.7); BASOPHIL # 0.1 TH/MM3 (0-0.2); EOSINOPHIL % 0.8 % (0.0-4.0); HEMATOCRIT 28.4 % (35.0-46.0); HEMOGLOBIN 9.7 GM/DL (11.6-15.3); LYMPHOCYTE # 1.2 TH/MM3 (1.0-4.8); MEAN CELL VOLUME 92.8 FL (80.0-100.0); MEAN CORPUSCULAR HEMOGLOBIN 31.8 PG (27.0-34.0); MEAN CORPUSCULAR HGB CONC 34.2 % (32.0-36.0); MEAN PLATELET VOLUME 8.1 FL (7.0-11.0); MONO % 6.5 % (0.0-8.0); MONOCYTE # 0.4 TH/MM3 (0-0.9); NEUT % 72.7 % (16.0-70.0); PLATELET COUNT 298 TH/MM3 (150-450); RED BLOOD COUNT 3.05 MIL/MM3 (4.00-5.30); RED CELL DISTRIBUTION WIDTH 14.2 % (11.6-17.2); WHITE BLOOD COUNT 6.1 TH/MM3 (4.0-11.0)
[2018-01-24 15:22] LABS: ALBUMIN 3.3 GM/DL (3.4-5.0); ALT (GPT) 18 U/L (10-53); AST (GOT) 22 U/L (15-37); BICARBONATE 28.1 MEQ/L (21.0-32.0); BLOOD UREA NITROGEN 7 MG/DL (7-18); CALCIUM 8.3 MG/DL (8.5-10.1); CHLORIDE 106 MEQ/L (98-107); CREATININE 0.62 MG/DL (0.50-1.00); GLOMERULAR FILTRATION RATE 91 ML/MIN (>89); GLUCOSE,FASTING 110 MG/DL (74-99); SODIUM (NA) 141 MEQ/L (136-145)
[2018-01-24 15:24] LABS: ALKALINE PHOSPHATASE 56 U/L (45-117); TOTAL BILIRUBIN ADULT 0.2 MG/DL (0.2-1.0); TOTAL PROTEIN 6.7 GM/DL (6.4-8.2)
== END ==
LOC: CLAB 14:29
PROVIDERS: ATTEND Internal Medicine Gastroenterology
DX: K92.2 Gastrointestinal hemorrhage, unspecified (principal)
CPT/HCPCS: 36415; 80053; 85025